=== PATIENT | male | born 1960 | race Caucasian/White ===

== ENCOUNTER 2022-09-10 14:08 | Emergency (ER) | payer OTHER ==
[~2022-09-10] VITALS: Ht 170.2 cm; Wt 86.2 kg
[~2022-09-10 14:08] MED LIST: ASPIRIN EC81 MG PO; CARVEDILOL3.125 MG PO; COUMADIN5 MG PO; LANTUS100 UNITS/ SUB-Q; LIPITOR80 MG PO; LISINOPRIL2.5 MG PO; LOVENOX120 MG SUB-Q; METFORMIN HCL1000 MG PO; NIACIN500 M1 PO; NOVOLOG100 UNITS/ SUB-Q; SULFAMETHOXAZO1 EAC1 PO; SURESTEP PRO1 EA VI; TRIAMCINOLONE A15 GM TOP; WARFARIN SODIUM5 MG PO
[2022-09-10 17:07] VITALS: BP 112/67
--- NOTE | 2022-09-10 22:55 | EKG ---
[facility] [address] [place] [address] Signed Atrial-sensed ventricular-paced rhythm Abnormal ECG No previous ECGs available Confirmed by Alba Orona MD () on 09/10/2022 10:55:00 PM Electronically Signed By: ALBA ORONA MD 09/10/22 2255 PATIENT NAME: DARLEEN JOYCE Electrocardiogram DATE OF : 62 PHYSICIAN: ALBA ORONA MD REPORT #: [id number] REPORT IS CONFIDENTIAL AND NOT TO BE RELEASED WITHOUT AUTHORIZATION
== END 2022-09-10 17:11 | disposition home or self-care (01) ==
LOC: ED 14:08
DX: R07.89 Other chest pain (principal); E11.9 Type 2 diabetes mellitus without complications; I10 Essential (primary) hypertension; I25.2 Old myocardial infarction; Z87.891 Personal history of nicotine dependence; Z88.0 Allergy status to penicillin; Z79.4 Long term (current) use of insulin; Z79.01 Long term (current) use of anticoagulants; Z79.82 Long term (current) use of aspirin; Z95.1 Presence of aortocoronary bypass graft; Z95.0 Presence of cardiac pacemaker
CPT/HCPCS: 36415; 71045; 80053; 83735; 84484; 85025; 93005; 93010; 99285 25

== ENCOUNTER 2023-04-04 18:05 | Emergency (ER) | payer OTHER ==
[~2023-04-04] VITALS: Ht 170.2 cm; Wt 88.5 kg
[2023-04-04 18:20] LABS: BASOPHILS 0.9 % (0-2); EOSINOPHILS 1.6 % (0-6); HEMATOCRIT 39.5 % (35.0-50.0); HEMOGLOBIN 13.5 g/dL (12.0-18.0); LYMPHOCYTES 20.8 % (24-44); MCH 30.7 (27-36); MCHC 34.1 g/dl (30-36); MCV 90.2 fl (81-99); MONOCYTES 8.9 % (0-12); NEUTROPHILS 67.8 % (39-80); PLATELET COUNT 185 K/uL (140-440); RBC 4.38 M/ul (4.3-5.7); RDW 13.8 (10.5-15.0)
[2023-04-04 18:43] LABS: ALBUMIN 3.7 g/dL (3.4-5.0); ALBUMIN/GLOBULIN RATIO 1.19 (1.1-2.4); ANION GAP 13.9 (7-21); BILIRUBIN, TOTAL 0.4 ng/dL (0.2-1.0); BUN/CREATININE RATIO 16.12 (6.0-28.6); CALCIUM 8.6 mg/dL (8.5-10.1); CREATININE, SERUM 0.93 mg/dL (0.70-1.30); MAGNESIUM 1.9 mg/dL (1.8-2.4); POTASSIUM 3.9 mmol/L (3.5-5.1); PROTEIN, TOTAL 6.8 g/dL (6.4-8.2)
--- NOTE | 2023-04-04 19:09 | EKG ---
[facility] [address] [facility] [place], [place] [address] Signed AV dual-paced rhythm Confirmed by Krishna Tinajero M.D. ([id number]) on 04/04/2023 7:09:09 PM Electronically Signed By: KRISHNA TINAJERO 04/04/23 1909 PATIENT NAME: DARLEEN JOYCE A Electrocardiogram DATE OF : 62 PHYSICIAN: KRISHNA TINAJERO REPORT #: [id number] REPORT IS CONFIDENTIAL AND NOT TO BE RELEASED WITHOUT AUTHORIZATION
[2023-04-04 20:32] VITALS: BP 105/68
== END 2023-04-04 20:33 | disposition home or self-care (01) ==
LOC: ED 18:05
PROVIDERS: Emergency Medicine
DX: R07.89 Other chest pain (principal); I25.10 Atherosclerotic heart disease of native coronary artery without angina pectoris; I11.0 Hypertensive heart disease with heart failure; I50.9 Heart failure, unspecified; I25.2 Old myocardial infarction; E11.9 Type 2 diabetes mellitus without complications; Z95.1 Presence of aortocoronary bypass graft; Z95.0 Presence of cardiac pacemaker; Z87.891 Personal history of nicotine dependence; Z88.0 Allergy status to penicillin; Z79.4 Long term (current) use of insulin; Z79.01 Long term (current) use of anticoagulants; Z79.899 Other long term (current) drug therapy
CPT/HCPCS: 36415; 71045; 80053; 83735; 84484; 85025; 93005; 93010